=== PATIENT | male | born 1990 | race Hispanic/Latino ===

== ENCOUNTER 2024-06-12 23:42 | Emergency (ER) | payer MEDICARE ==
[~2024-06-12] VITALS: Ht 182.9 cm; Wt 119.7 kg
[2024-06-13] MEDS ORDERED: AMOX1TAB16 PO (00:33)
[2024-06-13] MEDS ORDERED: MAGIC MM (00:33)
[2024-06-13 02:20] VITALS: BP 142/79; PULSE 85; RESP 16; TEMP 98.2; O2SAT 100
== END 2024-06-13 02:20 | disposition home or self-care (01) ==
LOC: EDH 23:42
DX: K13.70 Unspecified lesions of oral mucosa (principal); K00.7 Teething syndrome
CPT/HCPCS: 87880